=== PATIENT | female | born 1985 | race Caucasian/White ===

== ENCOUNTER 2020-12-08 16:17 | Observation (INO) | payer BC ==
[~2020-12-08] VITALS: Ht 165.1 cm; Wt 80.7 kg
== END 2020-12-08 17:50 | disposition home or self-care (01) ==
LOC: SPU 16:17
PROVIDERS: ADMIT Specialist; ATTEND Specialist
DX: O42.913 Preterm premature rupture of membranes, unspecified as to length of time between rupture and onset of labor, third trimester (principal); Z3A.34 34 weeks gestation of pregnancy
CPT/HCPCS: 76815; G0378

== ENCOUNTER 2021-01-05 15:32 | Inpatient (IN) | payer BC, SELFPAY ==
[~2021-01-05] VITALS: Ht 165.1 cm; Wt 83.0 kg
[2021-01-05] MEDS ORDERED: TERBUTALINE SULFATE 1 MG/ML VIAL SUBCUT PRN (16:00)
[2021-01-05] MEDS ORDERED: LR 1,000 ML IV SCH ×3 (16:00→21:45)
[2021-01-05 17:37] LABS: BILIRUBIN,URINE NEGATIVE (NEGATIVE); BLOOD, URINE 1+ (NEGATIVE); COLOR,URINE YELLOW (YELLOW); GLUCOSE,URINE NEGATIVE (NEGATIVE); KETONES,URINE NEGATIVE (NEGATIVE); LEUKOCYTE ESTERASE ,URINE TRACE (NEGATIVE); NITRITE, URINE NEGATIVE (NEGATIVE); PROTEIN URINE NEGATIVE (NEGATIVE); UROBILINOGEN,URINE 0.2 (0.2-1.0)
[2021-01-05] MEDS ORDERED: CEFAZOLIN 2 GM IVPB PREMIX 50 ML IV ONE (18:00)
[2021-01-05 18:01] LABS: CLARITY/URINE SLIGHTLY HAZY (CLEAR)
[2021-01-05 18:11] LABS: BACTERIA,URINE FEW /HPF (None Seen); RBC,URINE 0-3 /HPF (0-3)
[2021-01-05 18:13] LABS: BASOPHILS % (AUTO) 0.2 % (0.0-2.0); EOSINOPHILS % (AUTO) 0.2 % (0.0-4.0); HEMATOCRIT 32.3 % (36-48); HEMOGLOBIN 10.8 g/dL (12.0-16.0); LYMPHOCYTES # (AUTO) 1.6 K/uL (1.0-5.5); LYMPHOCYTES % (AUTO) 13.8 % (20.5-51.5); MEAN CORPUSCULAR HEMOGLOBIN 27 pg (27-31); MEAN CORPUSCULAR HGB CONC 33 % (32-36); MEAN CORPUSCULAR VOLUME 81 fL (79.0-98.0); MONOCYTES # (AUTO) 0.5 K/uL (0.0-1.0); MONOCYTES % (AUTO) 4.3 % (1.7-9.3); NEUTROPHILS # (AUTO) 9.2 K/uL (1.8-7.7); NEUTROPHILS % (AUTO) 81.5 % (40.0-70.0); PLATELET COUNT (AUTO) 181 K/uL (130-430); RED BLOOD CELL COUNT(AUTO) 3.97 MIL/uL (4.2-6.2); RED CELL DISTRIBUTION WIDTH 14.9 % (9.0-15.0); WHITE BLOOD COUNT (AUTO) 11.3 K/uL (4.8-10.8)
[2021-01-05 19:37] VITALS: BP_SYST 129
[2021-01-05] MEDS ORDERED: LANOLIN 7 GM OINT. TP PRN (21:45)
[2021-01-05] MEDS ORDERED: HYDROcodone/ACETAMIN 5-325 MG TAB (NORCO/ VICODIN) PO PRN (21:45)
[2021-01-05] MEDS ORDERED: OXYCODONE/ACETAMINOPHEN *10*mg/325 mg TABLET PO PRN (21:45)
[2021-01-05] MEDS ORDERED: TEMAZEPAM 15 MG CAPSULE PO PRN (21:45)
[2021-01-05] MEDS ORDERED: DIPH-TET-PERTUS Vaccine 0.5 ML VIAL (ADACEL) I.M. PRN (21:45)
[2021-01-05] MEDS ORDERED: BISACODYL 10 MG/SUPPOSITORY RC PRN (21:45)
[2021-01-05] MEDS ORDERED: NALOXONE HCL 0.4 MG/ML AMP (NARCAN) IVP PRN ×2 (21:45→22:00)
[2021-01-05] MEDS ORDERED: MEASLES,MUMPS&RUBELLA VACC/PF 12500 UNIT/0.5 ML VIAL SUBQ PRN (21:45)
[2021-01-05] MEDS ORDERED: RHO(D) IMMUNE GLOBULIN/MALTOSE 1500 UNITS/1.3 ML (WINHRO) IM PRN (21:45)
[2021-01-05] MEDS ORDERED: ANUSOL 1 EA SUPP.RECT (PREPARATION H) RC PRN (21:45)
[2021-01-05] MEDS ORDERED: MORPHINE SULFATE 10MG/10ML PF AMP SP SCH (22:00)
[2021-01-05] MEDS ORDERED: ONDANSETRON HCL 4 MG/2 ML VIAL IVP PRN (22:00)
[2021-01-05] MEDS ORDERED: DIPHENHYDRAMINE INJ 50 MG/ML VIAL IM PRN (22:00)
[2021-01-05] MEDS ORDERED: KETOROLAC TROMETHAMINE 60 MG/2 ML VIAL IM PRN (22:00)
[2021-01-05 22:22] VITALS: BP_SYST 116
[2021-01-05] MEDS ORDERED: DIPHENHYDRAMINE INJ 50 MG/ML VIAL ONE (23:37)
[2021-01-06] MEDS: OXYTOCIN/0.9 % SODIUM CHLORIDE 1,000 ML IV SCH ×2 (03:33→11:07)
[2021-01-06] MEDS: CEFAZOLIN 1 GM IVPB PREMIX 50 ML IV SCH ×3 (06:05→17:48)
[2021-01-06] MEDS: KETOROLAC TROMETHAMINE 30 MG VIAL IVP SCH ×3 (06:05→17:47)
[2021-01-06 06:38] LABS: BASOPHILS % (AUTO) 0.3 % (0.0-2.0); EOSINOPHILS % (AUTO) 0.3 % (0.0-4.0); HEMATOCRIT 29.4 % (36-48); HEMOGLOBIN 9.9 g/dL (12.0-16.0); LYMPHOCYTES % (AUTO) 17.2 % (20.5-51.5); MEAN CORPUSCULAR HEMOGLOBIN 27 pg (27-31); MEAN CORPUSCULAR HGB CONC 34 % (32-36); MEAN CORPUSCULAR VOLUME 81 fL (79.0-98.0); MONOCYTES # (AUTO) 0.7 K/uL (0.0-1.0); MONOCYTES % (AUTO) 6.2 % (1.7-9.3); NEUTROPHILS # (AUTO) 8.9 K/uL (1.8-7.7); PLATELET COUNT (AUTO) 176 K/uL (130-430); RED BLOOD CELL COUNT(AUTO) 3.64 MIL/uL (4.2-6.2); RED CELL DISTRIBUTION WIDTH 14.7 % (9.0-15.0); WHITE BLOOD COUNT (AUTO) 11.6 K/uL (4.8-10.8)
[2021-01-06] MEDS ORDERED: DIPHENHYDRAMINE INJ 50 MG/ML VIAL IVP PRN (06:45)
[2021-01-06] MEDS: DOCUSATE SODIUM 100 MG CAPSULE PO SCH ×2 (09:00→23:41)
[2021-01-06] MEDS: SIMETHICONE 80 MG TAB.CHEW PO PRN (17:47)
[2021-01-06] MEDS ORDERED: SENNOSIDES/DOCUSATE SODIUM 1 TAB TABLET(SENOKOT-S) PO SCH (21:00)
[2021-01-06] MEDS: OXYCODONE/ACETAMINOPHEN 5-325 TABLET PO PRN (23:40)
[2021-01-06] MEDS: IBUPROFEN 600 MG TABLET PO SCH (23:41)
[2021-01-07] MEDS: IBUPROFEN 600 MG TABLET PO SCH ×4 (05:55→23:43)
[2021-01-07] MEDS: SIMETHICONE 80 MG TAB.CHEW PO PRN ×2 (05:57→23:43)
[2021-01-07] MEDS: DOCUSATE SODIUM 100 MG CAPSULE PO SCH ×2 (09:06→23:43)
[2021-01-07] MEDS: OXYCODONE/ACETAMINOPHEN 5-325 TABLET PO PRN (17:44)
[2021-01-08] MEDS: SIMETHICONE 80 MG TAB.CHEW PO PRN ×2 (06:14→14:14)
[2021-01-08] MEDS: IBUPROFEN 600 MG TABLET PO SCH ×2 (06:15→12:43)
[2021-01-08] MEDS: DOCUSATE SODIUM 100 MG CAPSULE PO SCH (12:43)
[2021-01-08 18:06] LABS: FTA-Ab (T PALLIDUM) Non Reactive (Non Reactive)
== END 2021-01-08 14:16 | disposition home or self-care (01) | DRG 788 ==
LOC: SPU 15:32 → OBSVTOIN 16:56
PROVIDERS: ADMIT Specialist; ATTEND Specialist
PROC: 10D00Z1 Extraction of Products of Conception, Low, Open Approach (ICD-10-PCS; principal; 2021-01-05 21:00)
DX: O34.211 Maternal care for low transverse scar from previous cesarean delivery (principal); Z20.822 Contact with and (suspected) exposure to COVID-19; Z37.0 Single live birth; Z3A.38 38 weeks gestation of pregnancy
CPT/HCPCS: 36415; 59899; 81000; 85025; 86592; 86780; 86886; 86900; 86901; 87086; 94760; G0378; J0690; J1200; J1885; J2590; J3105

== ENCOUNTER 2022-10-16 05:35 | Inpatient (IN) | payer BC ==
[~2022-10-16] VITALS: Ht 165.1 cm; Wt 87.5 kg
[2022-10-16] MEDS ORDERED: CEFAZOLIN 2 GM IVPB PREMIX 50 ML IV ONE ×2 (06:15→09:20)
[2022-10-16] MEDS: LR 1,000 ML IV SCH ×2 (06:36→07:15)
[2022-10-16 06:57] LABS: BASOPHILS % (AUTO) 0.4 % (0.0-2.0); EOSINOPHILS # (AUTO) 0.2 K/uL (0.0-0.4); HEMATOCRIT 34.7 % (36-48); HEMOGLOBIN 11.6 g/dL (12.0-16.0); LYMPHOCYTES # (AUTO) 1.8 K/uL (1.0-5.5); LYMPHOCYTES % (AUTO) 19.7 % (20.5-51.5); MEAN CORPUSCULAR HEMOGLOBIN 27 pg (27-31); MEAN CORPUSCULAR HGB CONC 33 % (32-36); MEAN CORPUSCULAR VOLUME 79 fL (79.0-98.0); MONOCYTES # (AUTO) 0.6 K/uL (0.0-1.0); MONOCYTES % (AUTO) 6.9 % (1.7-9.3); NEUTROPHILS # (AUTO) 6.5 K/uL (1.8-7.7); PLATELET COUNT (AUTO) 192 K/uL (130-430); RED BLOOD CELL COUNT(AUTO) 4.37 MIL/uL (4.2-6.2); RED CELL DISTRIBUTION WIDTH 15.8 % (9.0-15.0); WHITE BLOOD COUNT (AUTO) 9.2 K/uL (4.8-10.8)
[2022-10-16 07:46] LABS: BILIRUBIN,URINE NEGATIVE (NEGATIVE); BLOOD, URINE NEGATIVE (NEGATIVE); CLARITY/URINE SL CLOUDY (CLEAR); COLOR,URINE YELLOW (YELLOW); GLUCOSE,URINE NEGATIVE (NEGATIVE); KETONES,URINE NEGATIVE (NEGATIVE); LEUKOCYTE ESTERASE ,URINE NEGATIVE (NEGATIVE); NITRITE, URINE NEGATIVE (NEGATIVE); PROTEIN URINE NEGATIVE (NEGATIVE); UROBILINOGEN,URINE 0.2 (0.2-1.0)
[2022-10-16 08:05] LABS: BACTERIA,URINE FEW /HPF (None Seen); RBC,URINE 0-3 /HPF (0-3); WBC,URINE 0-3 /HPF (0-3)
[2022-10-16] MEDS ORDERED: MORPHINE SULFATE 10MG/10ML PF AMP SP SCH (09:00)
[2022-10-16] MEDS ORDERED: NALOXONE HCL 0.4 MG/ML AMP (NARCAN) IVP PRN ×3 (09:00→10:45)
[2022-10-16] MEDS ORDERED: DIPHENHYDRAMINE INJ 50 MG/ML VIAL IV PRN (09:00)
[2022-10-16] MEDS ORDERED: ONDANSETRON HCL 4 MG/2 ML VIAL IVP PRN (09:00)
[2022-10-16] MEDS ORDERED: METOCLOPRAMIDE HCL 10 MG/2 ML VIAL IVP PRN (09:00)
[2022-10-16] MEDS ORDERED: HYDROmorphone 1 MG/ML INJ. CARTRIDGE IVP PRN (09:00)
[2022-10-16] MEDS ORDERED: KETOROLAC TROMETHAMINE 60 MG/2 ML VIAL IM PRN (09:00)
[2022-10-16] MEDS ORDERED: KETOROLAC TROMETHAMINE 30 MG VIAL IVP PRN (09:00)
[2022-10-16] MEDS ORDERED: LR 1,000 ML IV.SOLN IV ONE (09:20)
[2022-10-16] MEDS ORDERED: NS 1000 ML IV.SOLN IV ONE (09:20)
[2022-10-16] MEDS ORDERED: OXYTOCIN 10 UNIT/ML VIAL IV ONE (09:20)
[2022-10-16] MEDS ORDERED: BUPIVACAINE /PF 0.75% 10 ML VIAL INJ ONE (09:20)
[2022-10-16] MEDS ORDERED: OXYTOCIN/0.9 % SODIUM CHLORIDE 20 UNITS/1,000 ML BAG IV ONE (09:20)
[2022-10-16] MEDS ORDERED: ONDANSETRON HCL 4 MG/2 ML VIAL IVP ONE (09:20)
[2022-10-16] MEDS ORDERED: WATER FOR IRRIGATION,STERILE 1,000 ML IRRIG.SOLN IR ONE (09:20)
[2022-10-16 09:52] VITALS: BP_SYST 117
[2022-10-16] MEDS ORDERED: OXYCODONE/ACETAMINOPHEN 5-325 TABLET PO PRN (10:45)
[2022-10-16] MEDS ORDERED: LR 1,000 ML IV SCH (10:45)
[2022-10-16] MEDS ORDERED: LANOLIN 7 GM OINT. TP PRN (10:45)
[2022-10-16] MEDS ORDERED: OXYTOCIN/0.9 % SODIUM CHLORIDE 1,000 ML IV ONE (10:45)
[2022-10-16] MEDS ORDERED: HYDROcodone/ACETAMIN 5-325 MG TAB (NORCO/ VICODIN) PO PRN (10:45)
[2022-10-16] MEDS ORDERED: ANUSOL 1 EA SUPP.RECT (PREPARATION H) RC PRN (10:45)
[2022-10-16] MEDS: CEFAZOLIN 1 GM IVPB PREMIX 50 ML IV SCH ×3 (12:09→23:59)
[2022-10-16] MEDS: KETOROLAC TROMETHAMINE 30 MG VIAL IVP SCH (18:19)
[2022-10-16] MEDS: DOCUSATE SODIUM 100 MG CAPSULE PO SCH (20:35)
[2022-10-16] MEDS: SENNOSIDES/DOCUSATE SODIUM 1 TAB TABLET(SENOKOT-S) PO SCH (20:35)
[2022-10-16] MEDS ORDERED: TEMAZEPAM 15 MG CAPSULE PO PRN (21:00)
[2022-10-16] MEDS ORDERED: BISACODYL 10 MG/SUPPOSITORY RC SCH (21:00)
[2022-10-16] MEDS ORDERED: PHENYLEPH/MINERAL OIL/PETROLAT 57 GM OINT.APPL TP PRN (23:15)
[2022-10-17] MEDS ORDERED: OXYTOCIN/0.9 % SODIUM CHLORIDE 1,000 ML IV ONE (06:15)
[2022-10-17] MEDS: KETOROLAC TROMETHAMINE 30 MG VIAL IVP SCH ×2 (06:38)
[2022-10-17 06:43] LABS: BASOPHILS % (AUTO) 0.2 % (0.0-2.0); EOSINOPHILS # (AUTO) 0.2 K/uL (0.0-0.4); EOSINOPHILS % (AUTO) 1.5 % (0.0-4.0); HEMATOCRIT 32.4 % (36-48); LYMPHOCYTES # (AUTO) 1.2 K/uL (1.0-5.5); LYMPHOCYTES % (AUTO) 11.2 % (20.5-51.5); MEAN CORPUSCULAR HEMOGLOBIN 27 pg (27-31); MEAN CORPUSCULAR HGB CONC 34 % (32-36); MEAN CORPUSCULAR VOLUME 79 fL (79.0-98.0); MONOCYTES # (AUTO) 0.6 K/uL (0.0-1.0); NEUTROPHILS # (AUTO) 8.6 K/uL (1.8-7.7); NEUTROPHILS % (AUTO) 81.1 % (40.0-70.0); PLATELET COUNT (AUTO) 184 K/uL (130-430); RED BLOOD CELL COUNT(AUTO) 4.09 MIL/uL (4.2-6.2); RED CELL DISTRIBUTION WIDTH 15.8 % (9.0-15.0); WHITE BLOOD COUNT (AUTO) 10.6 K/uL (4.8-10.8)
[2022-10-17] MEDS: DOCUSATE SODIUM 100 MG CAPSULE PO SCH ×2 (09:03→21:02)
[2022-10-17] MEDS: SIMETHICONE 80 MG TAB.CHEW PO SCH ×2 (12:19→17:58)
[2022-10-17] MEDS ORDERED: IBUPROFEN 600 MG TABLET ONE (12:27)
[2022-10-17] MEDS: IBUPROFEN 600 MG TABLET PO SCH (12:29)
[2022-10-17] MEDS: SENNOSIDES/DOCUSATE SODIUM 1 TAB TABLET(SENOKOT-S) PO SCH (21:02)
[2022-10-18] MEDS: IBUPROFEN 600 MG TABLET PO SCH ×5 (00:04→23:28)
[2022-10-18] MEDS: OXYCODONE/ACETAMINOPHEN 5-325 TABLET PO PRN ×2 (05:44→22:01)
[2022-10-18] MEDS: DOCUSATE SODIUM 100 MG CAPSULE PO SCH ×2 (08:56→21:24)
[2022-10-18] MEDS: SIMETHICONE 80 MG TAB.CHEW PO SCH ×2 (18:01→22:00)
[2022-10-18] MEDS: SENNOSIDES/DOCUSATE SODIUM 1 TAB TABLET(SENOKOT-S) PO SCH (21:24)
[2022-10-19] MEDS: SIMETHICONE 80 MG TAB.CHEW PO SCH (05:54)
[2022-10-19] MEDS: IBUPROFEN 600 MG TABLET PO SCH (05:54)
[2022-10-19] MEDS: OXYCODONE/ACETAMINOPHEN 5-325 TABLET PO PRN ×2 (06:05→09:35)
[2022-10-19] MEDS ORDERED: DIPHTH,PERTUSS(ACELL),TET VAC 0.5 ML VIAL (Tdap) I.M. PRN (08:15)
[2022-10-19] MEDS ORDERED: FLU VACC QS2022-23(6MOS UP)/PF 0.5 ML/SYR SYRINGE I.M. ONE (08:15)
[2022-10-19] MEDS: DOCUSATE SODIUM 100 MG CAPSULE PO SCH (09:34)
== END 2022-10-19 09:50 | disposition home or self-care (01) | DRG 785 ==
LOC: SPU 05:35
PROVIDERS: ADMIT Specialist; ATTEND Specialist
PROC: 10D00Z1 Extraction of Products of Conception, Low, Open Approach (ICD-10-PCS; principal; 2022-10-17)
PROC: 0UB70ZZ Excision of Bilateral Fallopian Tubes, Open Approach (ICD-10-PCS; 2022-10-17)
DX: O34.211 Maternal care for low transverse scar from previous cesarean delivery (principal); Z20.822 Contact with and (suspected) exposure to COVID-19; Z3A.38 38 weeks gestation of pregnancy; Z37.0 Single live birth; Z30.2 Encounter for sterilization
CPT/HCPCS: 36415; 81000; 85025; 86592; 86886; 86900; 86901; 88302; 88305; 90715; 94760; J0690; J1885; J2405; J2590; J3490; J7030; J7120

== ENCOUNTER 2022-11-23 22:01 | Emergency (ER) | payer BC ==
[~2022-11-23] VITALS: Ht 165.1 cm; Wt 76.7 kg
[2022-11-23 22:15] VITALS: BP_SYST 141
--- NOTE | 2022-11-23 22:50 | NUR ---
Patient to ER bed 2 to gown for evaluation. Side rails up. Report given to
--- NOTE | 2022-11-23 23:05 | NUR ---
FIRST CONTACT WITH PT. ASSESSMENT COMPLETED. AWAITING ADDITIONAL EVAL AND ORDERS.
[2022-11-23] MEDS ORDERED: NACL 0.9% 1,000 ML IV ONE (23:15)
[2022-11-23 23:57] LABS: BASOPHILS % (AUTO) 0.2 % (0.0-2.0); EOSINOPHILS # (AUTO) 0.1 K/uL (0.0-0.4); EOSINOPHILS % (AUTO) 1.5 % (0.0-4.0); HEMATOCRIT 34.7 % (36-48); HEMOGLOBIN 11.5 g/dL (12.0-16.0); LYMPHOCYTES # (AUTO) 1.5 K/uL (1.0-5.5); LYMPHOCYTES % (AUTO) 16.8 % (20.5-51.5); MEAN CORPUSCULAR HEMOGLOBIN 26 pg (27-31); MEAN CORPUSCULAR HGB CONC 33 % (32-36); MEAN CORPUSCULAR VOLUME 78 fL (79.0-98.0); MONOCYTES # (AUTO) 0.7 K/uL (0.0-1.0); MONOCYTES % (AUTO) 8.4 % (1.7-9.3); NEUTROPHILS # (AUTO) 6.4 K/uL (1.8-7.7); NEUTROPHILS % (AUTO) 73.1 % (40.0-70.0); PLATELET COUNT (AUTO) 264 K/uL (130-430); RED BLOOD CELL COUNT(AUTO) 4.43 MIL/uL (4.2-6.2); RED CELL DISTRIBUTION WIDTH 15.5 % (9.0-15.0); WHITE BLOOD COUNT (AUTO) 8.7 K/uL (4.8-10.8)
[2022-11-24 00:24] LABS: CALCIUM 8.1 mg/dL (8.4-11.0); CREATININE 0.67 mg/dL (0.55-1.30)
[2022-11-24 00:24] LABS: BILIRUBIN,URINE NEGATIVE (NEGATIVE); BLOOD, URINE 1+ (NEGATIVE); COLOR,URINE YELLOW (YELLOW); GLUCOSE,URINE NEGATIVE (NEGATIVE); KETONES,URINE NEGATIVE (NEGATIVE); LEUKOCYTE ESTERASE ,URINE 3+ (NEGATIVE); NITRITE, URINE NEGATIVE (NEGATIVE); PROTEIN URINE NEGATIVE (NEGATIVE); UROBILINOGEN,URINE 0.2 (0.2-1.0)
[2022-11-24 00:30] LABS: CLARITY/URINE SLIGHTLY CLOUDY (CLEAR)
--- NOTE | 2022-11-24 00:32 | NUR ---
PT TO CT VIA BRIGITTE
[2022-11-24 00:48] LABS: ALBUMIN 3.1 g/dL (3.4-4.8); TOTAL BILIRUBIN 0.7 mg/dL (0.0-1.0)
[2022-11-24 00:50] LABS: BACTERIA,URINE MODERATE /HPF (None Seen); WBC,URINE 20-50 /HPF (0-3)
--- NOTE | 2022-11-24 02:00 | NUR ---
PT RESTING WITH NO ACUTE DISTRESS.
[2022-11-24] MEDS ORDERED: cephALEXin 500 MG CAPSULE PO ONE (02:45)
[2022-11-24] MEDS ORDERED: CEPH-548 PO (02:48)
--- NOTE | 2022-11-24 03:36 | NUR ---
Patient given written and verbal discharge instructions and verbalizes understanding. ER MD PANIAGUA discussed with patient the results and treatment provided. Patient in stable condition. ID arm band removed. IV catheter removed intact and dressing applied, no active bleeding. Rx of KEFLEX given. Patient educated on pain management and to follow up with PMD. Pain Scale 0. Opportunity for questions provided and answered. Medication side effect fact sheet provided.
[2022-11-24 03:37] VITALS: BP_SYST 124
== END 2022-11-24 03:38 | disposition home or self-care (01) ==
LOC: SED 22:01
DX: L03.311 Cellulitis of abdominal wall (principal); N39.0 Urinary tract infection, site not specified; R50.9 Fever, unspecified; R11.0 Nausea; Z79.899 Other long term (current) drug therapy
CPT/HCPCS: 99285; 96360; 80053; 81000; 85025; 87086; 36415; 74177; 76376; Q9967; J7030